=== PATIENT | female | born 2000 | race Caucasian/White ===

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

== ENCOUNTER 2018-02-21 18:04 | Emergency (ER) | payer OTHER ==
[~2018-02-21] VITALS: Ht 170.2 cm; Wt 65.9 kg
[~2018-02-21 18:04] MED LIST: CIPRO 500MG TA500 MG PO; FLEXERIL 1010 MG/TAB PO; VOLTAREN 75 DR75 MG PO; YAZ 28 3 MG-0.01 TAB PO
[2018-02-21 18:12] VITALS: BP 117/58; TEMP 98.1
[2018-02-21] MEDS ORDERED: REGLAN 10MG10 MG/TAB PO (20:06)
[2018-02-21 20:35] VITALS: PULSE 89
== END 2018-02-21 20:35 | disposition home or self-care (01) ==
LOC: COL.ER 18:04
DX: G43.909 Migraine, unspecified, not intractable, without status migrainosus (principal); R11.0 Nausea
CPT/HCPCS: J1200; J2765; J7030

== ENCOUNTER 2020-01-25 02:11 | Emergency (ER) | payer OTHER ==
[~2020-01-25] VITALS: Ht 167.6 cm; Wt 50.0 kg
[~2020-01-25 02:11] MED LIST changes: +REGLAN 10MG10 MG/TAB PO
[2020-01-25 02:13] VITALS: TEMP 98.1
[2020-01-25] MEDS ORDERED: LEXAPRO 10MG10 MG PO (02:31)
[2020-01-25] MEDS ORDERED: NEXPLANON68 MG ID (02:31)
[2020-01-25 02:36] LABS: BASO # 0.1 (0.0-0.2); BASO % 0.3 % (0.0-2.0); EOS % 0.1 % (0-4.0); GRAN # 13.3 (1.4-6.5); GRAN % 85.5 % (42.2-75.2); HEMATOCRIT 39.5 % (37.0-47.0); HEMOGLOBIN 13.5 g/dl (12.5-16.0); LYMPH # 1.3 (1.2-3.4); LYMPH % 8.2 % (20.0-51.0); MEAN CELL VOLUME 91 fl (80.0-100.0); MEAN CORPUSCULAR HEMOGLOBIN 31 pg (27.0-31.0); MEAN CORPUSCULAR HGB CONC 34 g/dl (33.0-37.0); MEAN PLATELET VOLUME 9.6 fl (7.4-10.4); MONO # 0.9 (0.1-0.6); MONO % 5.5 % (1.7-9.3); PLATELET COUNT 220 K/mm3 (130-400); RED BLOOD COUNT 4.36 M/mm3 (4.10-5.30); REDCELL DISTRIBUTION WIDTH-CV 12.6 % (11.5-14.5)
[2020-01-25 02:42] LABS: ALANINE AMINOTRANSFERASE 18 U/L (4-34); ALKALINE PHOSPHATASE 60 U/L (50-136); ANION GAP 13 mmol/L (7-16); AST,SGOT 31 U/L (15-37); BILIRUBIN,TOTAL 0.8 mg/dL (0.0-1.0); BLOOD UREA NITROGEN 10 mg/dL (7-17); CALCIUM 9.8 mg/dL (8.4-10.2); CARBON DIOXIDE 24 mmol/L (22-30); CHLORIDE 99 mmol/L (98-107); CREATININE, serum 0.67 (0.52-1.25); GLUCOSE 176 mg/dL (74-106); POTASSIUM 3.6 mmol/L (3.4-5.0); SODIUM 137 mmol/L (137-145); TOTAL PROTEIN 8.3 gm/dL (6.4-8.2)
[2020-01-25 02:54] LABS: TROPONIN-I < 0.012 ng/mL (0.000-0.035)
[2020-01-25 03:04] LABS: COLLECTION METHOD CLEAN CATCH
[2020-01-25 03:20] LABS: PH 7 (5-8); SQUAMOUS EPITHELIAL 0-2 /hpf; URINE APPEARANCE Clear; URINE BACTERIA Rare /hpf; URINE BILIRUBIN Negative (NEGATIVE); URINE BLOOD Negative (NEGATIVE); URINE COLOR Straw; URINE GLUCOSE 2+ (NEGATIVE); URINE KETONE 1+ (NEGATIVE); URINE LEUKOCYTE ESTERASE Trace (NEGATIVE); URINE NITRATE Negative (NEGATIVE); URINE PROTEIN(semi-quant) Negative (NEGATIVE); URINE RBC 0-2 /hpf; URINE UROBILINOGEN Negative (NEGATIVE)
[2020-01-25 04:50] VITALS: BP 119/69; PULSE 82
== END 2020-01-25 04:50 | disposition home or self-care (01) ==
LOC: COL.ER 02:11
PROVIDERS: Emergency Medicine
DX: R07.9 Chest pain, unspecified (principal); F41.9 Anxiety disorder, unspecified; Z32.02 Encounter for pregnancy test, result negative
CPT/HCPCS: J2405; J7030